=== PATIENT | female | born 1950 | race Asian ===

== ENCOUNTER 2018-06-01 16:50 | Inpatient (IN) | payer MEDICARE, MEDICAID ==
[2018-06-01 17:30] LABS: % BASOPHILS 1.4 % (0.0-2.0); % EOSINOPHILS 0.6 % (0.0-5.0); % LYMPHOCYTES 16.7 % (20.0-50.0); % MONOCYTES 0.4 % (2.0-10.0); % NEUTROPHILS 80.9 % (40.0-80.0); BASOPHILE ABSOLUTE 0.1 Th/cumm (0-0.2); HEMATOCRIT 33.1 % (41.0-60); HEMOGLOBIN 11.3 gm/dL (12-16); LYMPHOCYTE ABSOLUTE 1.4 Th/cmm (1.5-3.0); MEAN CELL VOLUME 89.6 fl (81-100); MEAN CORPUSCULAR HEMOGLOBIN 30.7 pg (27.0-31.0); MEAN CORPUSCULAR HGB CONC 34.2 pg (28.0-36.0); MEAN PLATELET VOLUME 7.8 fl; NEUTROPHILE ABSOLUTE 6.7 Th/cmm (1.8-8.0); PLATELET COUNT 267 Th/cmm (150-400); WHITE BLOOD COUNT 8.2 Th/cmm (4.8-10.8)
[2018-06-01 17:50] LABS: ALB/GLOB RATIO 1.2 (1.0-1.8); ALKALINE PHOSPHATASE 42 U/L (34-104); BILIRUBIN,TOTAL 0.7 mg/dL (0.3-1.0); BUN - UREA NITROGEN 35 mg/dL (7-25); CALCIUM SERUM 11.3 mg/dL (8.6-10.3); CHLORIDE 86 mEq/L (98-107); CREATININE - SERUM 0.9 mg/dL (0.6-1.2); GFR AFRICAN-AMERICAN > 60.0 ml/min (>90); GFR NON AFRICAN-AMERICAN > 60.0 ml/min; GLUCOSE 124 mg/dL (70-105); MAGNESIUM 1.3 mg/dL (1.9-2.7); PHOSPHOROUS 1.7 mg/dL (2.5-5.0); SGOT 34 U/L (13-39); SGPT/ALT 25 U/L (7-52); SODIUM SERUM 141 mEq/L (136-145); TOTAL PROTEIN,SERUM 3.7 gm/dL (6.0-8.3)
--- NOTE | 2018-06-01 17:54 | ED Physician Chart ---
ED Chief Complaint/HPI - Patient Information Date Seen:: 06/01/18 Time Seen:: 18:00 Chief Complaint:: low potassium , wants a new SNF History of Present Illness:: low potassium, wants a new SNF She called 911 to go to the hospital. Potassium of 2.6 on labs from today. Allergies:: Allergies Allergy/AdvReac Type Severity Reaction Status Date / Time cephalexin [From Keflex] Allergy Verified 06/01/18 17:10 ciprofloxacin Allergy Verified 06/01/18 17:10 Historian:: Patient, Medical Records Review:: Nurse's Note Reviewed, Transfer documents Reviewed ED Review of Systems - Review of Systems General/Constitutional: No fever, No chills, No weight loss, Weakness, No diaphoresis, No edema, No loss of appetite Skin: No skin lesions, No rash, No bruising Head: No headache, No light-headedness Eyes: No loss of vision, No pain, No diplopia ENT: No earache, No nasal drainage, No sore throat, No tinnitus Neck: No neck pain, No swelling, No thyromegaly, No stiffness, No mass noted Cardio Vascular: No chest pain, No palpitations, No PND, No orthopnea, edema Pulmonary: SOB, No cough, No sputum, No wheezing GI: No nausea, No vomiting, No diarrhea, No pain, No melena, No hematochezia, No constipation, No hematemesis G/U: No dysuria, No frequency, No hematuria Musculoskeletal: No bone or joint pain, No back pain, No muscle pain Endocrine: No polyuria, No polydipsia Psychiatric: Prior psych history, Depression, No anxiety, No suicidal ideation, No homicidal ideation, No auditory hallucination, No visual hallucination Hematopoietic: No bruising, No lymphadenopathy Allergic/Immuno: No urticaria, No angioedema Neurological: No syncope, No focal symptoms, No weakness, No paresthesia, No headache, No seizure, No dizziness, No confusion, No vertigo ED Past Medical History - Past Medical History Obtainable: No Past Medical History: HTN, DM, Dyslipidemia, PUD/GERD, Other (EDEMA) Psychiatricy History: Depression Family Medical History - Family Member Mother History Unknown: Yes ED Physical Exam - Physical Examination General/Constitutional: Awake, Well-developed, well-nourished, Alert, No distress, GCS 15, Non-toxic appearing, Ambulatory Head: Atraumatic Eyes: Lids, conjuctiva normal, PERRL, EOMI ENMT: External ears, nose nl Neck: Nontender, No nuchal rigidity, No stridor Respiratory: Nl effort/Exclusion Other Respiratory comments:: crackles at bases. no respiratory distress on oxygen. Cardio Vascular: RRR, No murmur, gallop, rubs, NL S1 S2 Extremities: Full ROM, normal strength in all extremities Other Extremities comments:: 3+ pitting edema. Neuro/Psych: Alert/oriented ED Labs/Radiology/EKG Results - Lab Results Results: Laboratory Tests 06/01/18 17:25 WBC 8.2 RBC 3.70 L Hgb 11.3 L Hct 33.1 L MCV 89.6 MCH 30.7 MCHC Differential 34.2 RDW 12.0 Plt Count 267 MPV 7.8 Neutrophils % 80.9 H Lymphocytes % 16.7 L Monocytes % 0.4 L Eosinophils % 0.6 Basophils % 1.4 ED Assessment - Assessment General Assessment: EKG from 19:08:36 p.m. reveals normal sinus rhythm, flipped t wave in V1 to V3. sign out given to Dr. Corona at 7:18 p.m. CXR: slight pulmonary edema. [address] Carmichael on cell phone. no answer. messages left. [address] Poe' service. no answer. message left. ED Septic Shock - . Is Septic Shock (SBP<90, OR Lactate>4 mmol\L) present?: No ED Reassessment (Disposition) - Diagnosis Diagnosis:: Hypokalemia Pulmonary edema Hypoxia, oxygen dependent. Low magnesium Low phosphorous. Urinary tract infection Anemia BLE edema.
[2018-06-01 17:59] LABS: URINE SOURCE CLEAN C
[2018-06-01 18:12] LABS: URINE BILIRUBIN NEGATIVE (NEGATIVE); URINE BLOOD SMALL (NEGATIVE); URINE GLUCOSE (UA) NEGATIVE (NEGATIVE); URINE KETONE NEGATIVE (NEGATIVE); URINE LEUKOCYTE ESTERASE TRACE (NEGATIVE); URINE MICROSCOPIC INDICATED? YES; URINE NITRATE NEGATIVE (NEGATIVE); URINE PROTEIN >=300 mg/dL (NEGATIVE); URINE UROBILINOGEN 0.2 E.U./dL (0.2 - 1.0)
[2018-06-01 18:18] LABS: ANION GAP 6.3 (7.0-16.0); CARBON DIOXIDE 51.1 mEq/L (21.0-31.0); POTASSIUM SERUM 2.4 mEq/L (3.5-5.1)
[2018-06-01] MEDS ORDERED: Potassium Chloride 20 mEq ER Tab PO ONE ×2 (18:18→18:58)
[2018-06-01 18:44] LABS: URINE CLARITY HAZY (CLEAR); URINE COLOR YELLOW
[2018-06-01 18:45] LABS: URINE EPITHELIAL CELLS FEW /lpf (FEW); URINE RBC NONE SEEN /hpf (0-5); URINE WBC 0-2 /hpf (0-5)
[2018-06-01 18:46] LABS: URINE BACTERIA MODERATE /hpf (NONE SEEN)
[2018-06-01] MEDS ORDERED: Potassium Chloride Elixir 20 mEq /15 mL UDC PO ONE (19:01)
[2018-06-01] MEDS ORDERED: Potassium Chloride Elixir 20 mEq /15 mL UDC ONE (19:03)
[2018-06-01 19:07] LABS: AMPHETAMINE URINE NEGATIVE (NEGATIVE); BARBITURATES URINE NEGATIVE (NEGATIVE); BENZODIAZEPINES QUAL URINE NEGATIVE (NEGATIVE); CANNABINOID THC NEGATIVE (NEGATIVE); COCAINE METABOLITE QUAL URINE NEGATIVE (NEGATIVE); METHADONE URINE NEGATIVE (NEGATIVE); METHAMPHETAMINES QUAL URINE NEGATIVE (NEGATIVE); OPIATES (MORPHINE) QUAL. URINE NEGATIVE (NEGATIVE); PHENCYCLIDINE (PCP) URINE NEGATIVE (NEGATIVE); TRICYCLICS (TCA) QUAL. URINE NEGATIVE (NEGATIVE)
[2018-06-01] MEDS ORDERED: Sodium Phos / Potassium Phos 1.25 GM PACK PO ONE (19:14)
[2018-06-01] MEDS ORDERED: Sulfamethoxazole/TMP 800/160mg Tab PO ONE (19:26)
[2018-06-01] MEDS ORDERED: D5-0.45NS w/20 mEq KCL 1,000 ML IV ONE ×2 (19:27→20:32)
[2018-06-01] MEDS ORDERED: Magnesium Sulfate 1 gm/2 mL 2mL Vial IV ONE ×2 (19:37→23:16)
[2018-06-01] MEDS ORDERED: Sulfamethoxazole/TMP 800/160mg Tab ONE (19:39)
[2018-06-01] MEDS ORDERED: Sodium Phos / Potassium Phos 1.25 GM PACK ONE (19:40)
[2018-06-01] MEDS ORDERED: Magnesium Sulfate 2 GM in Sodium Chloride 0.9% 500 ML IV ONE (21:57)
[2018-06-01] MEDS ORDERED: INSULIN HUMAN REGULAR 100 UNITS/ML UNIT SUBQ SCH ×2 (22:15)
[2018-06-02] MEDS ORDERED: cloNIDine 0.1 mg/24 hr Tdm TD SCH (00:30)
[2018-06-02 01:20] VITALS: BP 203/99
[2018-06-02] MEDS ORDERED: KCL 20mEq/100mL Premix 40 MEQ/200 ML PIGGYBACK IV ONE (03:34)
[2018-06-02] MEDS: Morphine Sulfate 4 mg/mL 1mL Syr IVP PRN ×2 (03:56→12:37)
[2018-06-02] MEDS ORDERED: Potassium Chloride 20 mEq ER Tab PO ONE ×2 (05:31→15:10)
[2018-06-02] MEDS ORDERED: INSULIN HUMAN REGULAR 100 UNITS/ML UNIT SUBQ SCH (07:30)
[2018-06-02 07:52] LABS: HEMOGLOBIN 11.5 gm/dL (12-16)
[2018-06-02 07:57] LABS: HEMATOCRIT 33.5 % (41.0-60); MEAN CORPUSCULAR HEMOGLOBIN 30.7 pg (27.0-31.0); MEAN CORPUSCULAR HGB CONC 34.4 pg (28.0-36.0); MEAN PLATELET VOLUME 7.9 fl; PLATELET COUNT 227 Th/cmm (150-400); RED BLOOD COUNT 3.76 Mil/cmm (3.80-5.20); RED CELL DISTRIBUTION WIDTH 12.4 % (11.5-20.0); WHITE BLOOD COUNT 8.6 Th/cmm (4.8-10.8)
[2018-06-02 08:23] LABS: ALB/GLOB RATIO 1.3 (1.0-1.8); ALKALINE PHOSPHATASE 42 U/L (34-104); BILIRUBIN,TOTAL 0.6 mg/dL (0.3-1.0); BUN - UREA NITROGEN 32 mg/dL (7-25); CALCIUM SERUM 10.7 mg/dL (8.6-10.3); CHLORIDE 93 mEq/L (98-107); GLUCOSE 114 mg/dL (70-105); POTASSIUM SERUM 3.3 mEq/L (3.5-5.1); SGOT 32 U/L (13-39); SGPT/ALT 23 U/L (7-52); SODIUM SERUM 144 mEq/L (136-145); TOTAL PROTEIN,SERUM 3.6 gm/dL (6.0-8.3)
[2018-06-02 08:39] LABS: ANION GAP 3.8 (7.0-16.0); CARBON DIOXIDE 50.5 mEq/L (21.0-31.0)
[2018-06-02] MEDS ORDERED: VTE Chemical Prophylaxis Screen/Admission MC PRN (09:11)
[2018-06-02] MEDS ORDERED: Influenza Vaccine (65 yr & older) 0.5 ml Syr IM ONE (09:15)
--- NOTE | 2018-06-02 09:18 | Diagnostic Imaging Report ---
Chest x-ray single view History: Hypoxia Comparison: None The heart size is normal. No focal pulmonary parenchymal processes. No hilar or mediastinal abnormalities. Impression: No acute abnormalities
[2018-06-02 09:31] LABS: BAND NEUTROPHILE 1 % (0-10); BASOPHIL 0 % (0-3); EOSINOPHIL 0 % (0-5); LYMPHOCYTE 8 % (20-50); MONOCYTE 4 % (2-10); NEUTROPHILS 87 % (40-80)
[2018-06-02] MEDS ORDERED: Acetaminophen 500 MG TAB PO PRN (12:04)
[2018-06-02] MEDS ORDERED: Acetaminophen 500 MG TAB ONE (12:07)
[2018-06-02] MEDS: 0.9% NS w/20 mEq KCL 1,000 ML IV SCH ×2 (12:13)
[2018-06-02] MEDS: INSULIN ASPART, RECOMBINANT 100 UNITS/ML SUBQ SCH ×3 (12:13→21:16)
[2018-06-02 13:13] LABS: GFR AFRICAN-AMERICAN > 60.0 ml/min (>90); GFR NON AFRICAN-AMERICAN 59.1 ml/min
[2018-06-02] MEDS ORDERED: Mag Sulfate 2gm/50mL Premix 2 GM/50 ML BAG IV ONE (15:05)
[2018-06-02 15:31] LABS: ALLEN TEST pos
[2018-06-02 15:33] LABS: pH 7.53 (7.35-7.45)
[2018-06-02] MEDS: D5-0.45NS 1,000 ML IV SCH (17:25)
[2018-06-02] MEDS: predniSONE 5 mg/5 mL UDC PO SCH (17:25)
[2018-06-02] MEDS ORDERED: Dextrose 50% 50 mL Abboject IVP PRN (17:37)
[2018-06-02] MEDS ORDERED: GLUCAGON HCl 1 MG KIT IM PRN (17:37)
[2018-06-02] MEDS ORDERED: Dextrose 50% 50 mL Abboject IVP ONE (17:39)
--- NOTE | 2018-06-02 19:29 | History & Physical ---
ADMIT DATE: 06/02/2018 PATIENT'S ID: A 67-year-old female. CHIEF COMPLAINT: "I feel weak." HISTORY SOURCE: Talking to patient's family, reviewing the chart and Emergency Room MD. HISTORY OF PRESENT ILLNESS: A 67-year-old [place] female who resides at local [facility], brought in to the Emergency Room by paramedics after the patient called 911 because the patient was not feeling well and the patient did have a blood test on 06/01/2018, which revealed potassium of 2.6 and the patient was arrived in the Emergency Room, the patient was worked up and noted to have a potassium of 2.3, magnesium 1.3, elevated CO2 of 51.5. The patient was advised to be admitted. The patient was recently discharged from the local hospital after the patient was noted to have generalized swelling of her body and she was recently placed on 2 diuretics. According to patient's family, they were not checking her lab, though I did find lab on 06/01. The patient is currently sleepy and lethargic. The patient had adequate potassium replacement and her potassium today is 3.3. The patient was admitted by me overnight. PAST MEDICAL HISTORY: Remarkable for: 1. Diabetes. 2. Hypertension. 3. Hyperlipidemia. 4. Depression. 5. Possible nephrotic syndrome. 6. Anasarca. 7. Degenerative joint disease. 8. Depression. MEDICATIONS: At the time of transfer has been reviewed and reconciled. ALLERGIES: The patient is allergic to KEFLEX and CIPRO. SOCIAL HISTORY: She resides in a [facility]. No history of smoking cigarette, alcohol, or drug use. FAMILY MEDICAL HISTORY: Remarkable for diabetes and hypertension. PHYSICAL EXAMINATION: GENERAL: The patient is sleepy and lethargic, refused to provide meaningful history. VITAL SIGNS: Temperature 97.3, pulse 60, respiratory rate 18, blood pressure 184/80. HEENT: Normocephalic, atraumatic. Extraocular muscles intact. Tongue more pink and coated. Poor dentition noted. NECK: Supple, no JVD. No hepatojugular reflex. No lymphadenopathy, thyromegaly, or carotid bruit. HEART: Both heart sounds are regular. CHEST AND LUNGS: Equal in expansion with no expiratory wheezing. ABDOMEN: Soft, no guarding, no rigidity. Liver and spleen not palpable. No palpable mass. EXTREMITIES: +2 pedal edema noted. No calf tenderness. NEUROLOGIC: Alert, awake, follows simple command, moving upper and lower extremity. AVAILABLE DIAGNOSTIC DATA: The patient's white count 8.2, hemoglobin 11.3, platelet count of 267. Potassium 2.4, CO2 51.5, anion gap of 6.3, BUN and creatinine 30 and 0.9, sodium 141, glucose 124, calcium 11.3, phosphorus 1.7, magnesium 1.3. BNP is . Albumin of 2.0. Urinalysis remarkable for plus more than 300 protein, small blood, trace leukocyte esterase, moderate bacteria. Urine drug screen was negative. Chest x-ray, no infiltrate, no congestion. CLINICAL IMPRESSIONS: 1. Severe electrolyte imbalance most likely secondary to diuretic use including metolazone and Lasix. 2. 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 3. Diabetes mellitus. 4. Hypertension. 5. Hyperlipidemia. 6. Volume contraction metabolic alkalosis. 7. Declining self-care and mobility. PLAN: Replace potassium and magnesium, aggressive IV hydration, hold diuretics, appropriate home medicine reconciliation, provide CASSI inhibitor for pyelonephritis syndrome along with beta-spencer. Calcium channel spencer will increase the patient's leg edema. The patient will have diabetic diet. Appropriate home medicine reconciliation. ABG will be checked in order to assess acid-base imbalance. The patient will have further recommendations based on other lab data are available. I will also have Nephrology evaluation from Dr. Low group and will continue to follow the recommendations. Care plan has been reviewed and discussed with the patient and the patient's family as well as assigned nurse. JOB# [id number]
[2018-06-02] MEDS: Insulin Detemir 100 units/mL 10mL Vial SUBQ SCH (21:16)
--- NOTE | 2018-06-02 23:54 | Consultation ---
Consult Note - Consult Note Service Date: 06/03/18 Consult Note: PHYSICIAN Consultation Note: Date of Admission: 06/01/18 Purpose of Consultation: Chief Complaint: History of Present Illness: Patient DOMITILA KOHLI was admitted to location Intensive Care Unit with SERIOUS ELECTROLYTE IMBALANCE. Ms. 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 Recently she was admitted to [facility] and underwent diuresis there with IV lasix. On examination, she denies complaints with the exception of flank edema. ROS: denies fevers, chills, nausea, vomiting, chest pain, shortness of breath, abdominal pain, + leg and flank edema Past Medical History: Allergies Allergy/AdvReac Type Severity Reaction Status Date / Time cephalexin [From Keflex] Allergy Verified 06/01/18 17:10 ciprofloxacin Allergy Verified 06/01/18 17:10 Vital Signs Temp 97.4 F 06/02/18 23:00 Pulse 58 06/02/18 23:00 Resp 12 06/02/18 23:00 BP 164/89 06/02/18 23:00 Pulse Ox 96 06/02/18 23:00 Intake & Output 06/02/18 06/02/18 06/03/18 06:59 18:59 06:59 Intake Total 547.5 788.75 Output Total 500 700 Balance 47.5 88.75 Weight (lbs) 68.311 kg 68.492 kg Intake: Intake, IV Amount 487.5 428.75 0.9% NS w/20 mEq KCL 1, 487.5 428.75 000 ml @ 75 mls/hr IV . [id number] [facility] Rx#:[id number] Oral 60 360 Output: Urine 500 700 Other: # Voids 2 3 # Bowel Movements 0 0 Weight Source Bedscale Bedscale Laboratory Results - last 24 hr 06/02/18 06/02/18 06/02/18 07:30 07:36 07:40 WBC 8.6 RBC 3.76 L Hgb 11.5 L Hct 33.5 L MCV 89.0 MCH 30.7 MCHC Differential 34.4 RDW 12.4 Plt Count 227 MPV 7.9 Add Manual Diff YES Band Neutrophils % 1 Neutrophils (Manual) 87 H Lymphocytes 8 L Monocytes 4 Eosinophils 0 Basophils 0 Specimen Source Sample Site pH pCO2 pO2 HCO3 Base Excess O2 Saturation Eren Test Vent Rate Inspired O2 Tidal Volume PEEP Pressure (ins/psv/peep) Critical Value Sodium Potassium Chloride Carbon Dioxide Anion Gap BUN Creatinine Est GFR ( Amer) Est GFR (Non-Af Amer) BUN/Creatinine Ratio Glucose POC Glucose 232 H Calcium Magnesium 1.8 L Total Bilirubin AST ALT Alkaline Phosphatase Troponin I Total Protein Albumin Globulin Albumin/Globulin Ratio 06/02/18 06/02/18 06/02/18 07:40 11:52 15:06 WBC RBC Hgb Hct MCV MCH MCHC Differential RDW Plt Count MPV Add Manual Diff Band Neutrophils % Neutrophils (Manual) Lymphocytes Monocytes Eosinophils Basophils Specimen Source art Sample Site lr pH 7.53 H pCO2 65.0 H* pO2 70.0 L HCO3 45.1 H Base Excess 25.9 H O2 Saturation 95.0 Eren Test pos Vent Rate na Inspired O2 24 Tidal Volume na PEEP na Pressure (ins/psv/peep) na Critical Value rninofranco Sodium 144 Potassium 3.3 L Chloride 93 L Carbon Dioxide 50.5 H Anion Gap 3.8 L BUN 32 H Creatinine 1.0 Est GFR ( Amer) > 60.0 Est GFR (Non-Af Amer) 59.1 BUN/Creatinine Ratio Glucose 114 H POC Glucose 168 H Calcium 10.7 H Magnesium Total Bilirubin 0.6 AST 32 ALT 23 Alkaline Phosphatase 42 Troponin I Total Protein 3.6 L Albumin 2.0 L Globulin 1.6 Albumin/Globulin Ratio 1.3 06/02/18 06/02/18 06/02/18 15:21 17:35 18:02 WBC RBC Hgb Hct MCV MCH MCHC Differential RDW Plt Count MPV Add Manual Diff Band Neutrophils % Neutrophils (Manual) Lymphocytes Monocytes Eosinophils Basophils Specimen Source Sample Site pH pCO2 pO2 HCO3 Base Excess O2 Saturation Eren Test Vent Rate Inspired O2 Tidal Volume PEEP Pressure (ins/psv/peep) Critical Value Sodium Potassium Chloride Carbon Dioxide Anion Gap BUN Creatinine Est GFR ( Amer) Est GFR (Non-Af Amer) BUN/Creatinine Ratio Glucose POC Glucose 56 L 124 H Calcium Magnesium Total Bilirubin AST ALT Alkaline Phosphatase Troponin I 0.04 Total Protein Albumin Globulin Albumin/Globulin Ratio 06/02/18 21:09 WBC RBC Hgb Hct MCV MCH MCHC Differential RDW Plt Count MPV Add Manual Diff Band Neutrophils % Neutrophils (Manual) Lymphocytes Monocytes Eosinophils Basophils Specimen Source Sample Site pH pCO2 pO2 HCO3 Base Excess O2 Saturation Eren Test Vent Rate Inspired O2 Tidal Volume PEEP Pressure (ins/psv/peep) Critical Value Sodium Potassium Chloride Carbon Dioxide Anion Gap BUN Creatinine Est GFR ( Amer) Est GFR (Non-Af Amer) BUN/Creatinine Ratio Glucose POC Glucose 158 H Calcium Magnesium Total Bilirubin AST ALT Alkaline Phosphatase Troponin I Total Protein Albumin Globulin Albumin/Globulin Ratio Home Medication Medication Instructions Recorded Type Atorvastatin Calcium [Lipitor] 40 mg PO HS 06/01/18 History Bisacodyl [Dulcolax 10 Mg Supp] 10 mg RC Q24H PRN 06/01/18 History Calcitriol [Rocaltrol] 0.5 mcg PO DAILY 06/01/18 History Calcium Acetate [Phoslo] 1,334 mg PO TID 06/01/18 History Calcium Carbonate 500 mg PO BID 06/01/18 History Carvedilol 12.5 mg PO BID 06/01/18 History Docusate Sodium 100 mg PO BID 06/01/18 History Fluoxetine HCl [Prozac] 40 mg PO DAILY 06/01/18 History Furosemide [Lasix] 40 mg PO Q12H 06/01/18 History Glimepiride [Amaryl] 1 mg PO BID 06/01/18 History Insulin Lispro [Humalog] 0 unit SUBQ ACHS 06/01/18 History Metolazone 5 mg PO DAILY 06/01/18 History Multivitamin w/ Minerals 1 tab PO DAILY 06/01/18 History [Theragran M] Pantoprazole Sodium 40 mg PO DAILY 06/01/18 History Potassium Chloride ER [Klor-Con] 40 meq PO Q12H 06/01/18 History Prednisone [Deltasone] 60 mg PO DAILY 06/01/18 History Sennosides [Senna] 17.2 mg PO DAILY 06/01/18 History Current Medications Generic Name Dose Route Start Last Admin Trade Name Freq PRN Reason Stop Dose Admin Acetaminophen 500 mg 06/02/18 12:04 Tylenol Extra Strength PO 08/01/18 12:03 Q6H PRN Pain (Mild) Carvedilol 12.5 mg 06/02/18 18:00 06/02/18 17:26 Coreg PO 08/01/18 17:59 12.5 mg BIDWM ASHLEY Administration Clonidine HCl 1 patch 06/02/18 00:30 06/02/18 03:55 [id number] TD 08/01/18 00:29 Not Given SA ASHLEY Dextrose 50 ml 06/02/18 17:37 D50w IVP 08/01/18 17:36 PRN PRN Blood Glucose less than 70 Dextrose 18.75 gm 06/02/18 17:37 Glutose 40% PO 08/01/18 17:36 PRN PRN Blood Glucose less than 70 Enalapril Maleate 20 mg 06/02/18 17:00 06/02/18 17:26 Vasotec PO 08/01/18 16:59 20 mg BID ASHLEY Administration Glucagon 1 mg 06/02/18 17:37 Glucagen IM 08/01/18 17:36 PRN PRN Blood Glucose less than 70 Heparin Sodium (Porcine) 5,000 units 06/02/18 09:00 06/02/18 21:17 Heparin SUBQ 08/01/18 08:59 5,000 units Q12HR ASHLEY Administration Dextrose/Sodium Chloride 1,000 mls @ 100 mls/hr 06/02/18 15:15 06/02/18 17:25 D5-0.45ns IV 08/01/18 15:14 100 mls/hr .Q10H ASHLEY Administration Insulin Aspart 0 units 06/02/18 09:07 06/02/18 21:16 Novolog SUBQ 08/01/18 07:29 2 units ACHS ASHLEY Administration Protocol Insulin Detemir 12 units 06/02/18 21:00 06/02/18 21:16 Levemir Insulin SUBQ 08/01/18 20:59 12 units HS ASHLEY Administration Protocol Miscellaneous 1 ea 06/02/18 09:11 Vte Chemical Prophylaxis Screen/ Admission 08/01/18 09:10 PRN PRN PROTOCOL Morphine Sulfate 2 mg 06/02/18 00:22 06/02/18 12:37 Morphine IVP 08/01/18 00:21 2 mg Q6HR PRN Administration Pain (Severe) Prednisone 10 mg 06/02/18 17:00 06/02/18 17:25 Prednisone PO 08/01/18 16:59 10 mg BID ASHLEY Administration Sitagliptin Phosphate 100 mg 06/03/18 09:00 Januvia PO 08/02/18 08:59 DAILY ASHLEY Review of Systems: A 12 point ROS was reviewed with the pertinent positive and negatives noted in the HPI. Social History Smoking Status Unknown if ever smoked Drug Use No Alcohol Use No Family Medical History Family Medical History Start: 06/01/18 22: 17 Freq: ONCE Status: Active Protocol: Document 06/01/18 22:17 [email or web address] (Rec: 06/02/18 01:16 [email or web address] VILLA- [id number]) Family Medical History Mother History Unknown Yes Physical Exam: General: WDWN woman, NAD, alert and oriented Cardio: regular rate, nl rhythm, no m/r/g Respiratory: clear bilaterally Abdominal: active bowel sounds, + flank edema Extremities: 1+ edema Assessment: 1. FSGS, biopsy proven w/ recent relapse: continue steroids for now, obtain 24h urine protein collection for quantification. She may need pulse steroids for 5 days if she has not remitted 2. Nephrotic syndrome: see above, continue lasix/prednisone 3. HTN: continue BP meds at this time, CASSI-I included for antiproteinuric effect Plan: See above. D/w [employer] SPECIALIST Signed, Mitesh Hernandez 06/03/18 0030
[2018-06-03] MEDS ORDERED: Potassium Phosphate 20 MMOLE in Sodium Chloride 0.9% 250 ML IV ONE ×2 (02:00→14:00)
[2018-06-03] MEDS: D5-0.45NS 1,000 ML IV SCH ×3 (03:25→23:57)
[2018-06-03] MEDS: INSULIN ASPART, RECOMBINANT 100 UNITS/ML SUBQ SCH ×4 (06:55→21:06)
[2018-06-03 07:25] LABS: % BASOPHILS 0.5 % (0.0-2.0); % EOSINOPHILS 0.5 % (0.0-5.0); % LYMPHOCYTES 9.8 % (20.0-50.0); % MONOCYTES 5.1 % (2.0-10.0); % NEUTROPHILS 84.1 % (40.0-80.0); HEMATOCRIT 33.3 % (41.0-60); HEMOGLOBIN 11.5 gm/dL (12-16); LYMPHOCYTE ABSOLUTE 0.9 Th/cmm (1.5-3.0); MEAN CELL VOLUME 89.4 fl (81-100); MEAN CORPUSCULAR HEMOGLOBIN 30.9 pg (27.0-31.0); MEAN CORPUSCULAR HGB CONC 34.5 pg (28.0-36.0); MEAN PLATELET VOLUME 8.2 fl; MONOCYTE ABSOLUTE 0.5 Th/cmm (0.3-1.0); NEUTROPHILE ABSOLUTE 7.5 Th/cmm (1.8-8.0); PLATELET COUNT 228 Th/cmm (150-400); RED BLOOD COUNT 3.72 Mil/cmm (3.80-5.20); WHITE BLOOD COUNT 8.9 Th/cmm (4.8-10.8)
[2018-06-03 08:13] LABS: ALBUMIN 1.8 gm/dL (3.7-5.3); ALKALINE PHOSPHATASE 40 U/L (34-104); ANION GAP 5.4 (7.0-16.0); BILIRUBIN,TOTAL 0.4 mg/dL (0.3-1.0); BUN - UREA NITROGEN 30 mg/dL (7-25); CHLORIDE 97 mEq/L (98-107); GFR AFRICAN-AMERICAN > 60.0 ml/min (>90); GFR NON AFRICAN-AMERICAN 59.1 ml/min; GLUCOSE 108 mg/dL (70-105); MAGNESIUM 1.7 mg/dL (1.9-2.7); POTASSIUM SERUM 3.2 mEq/L (3.5-5.1); SGOT 28 U/L (13-39); SGPT/ALT 20 U/L (7-52); SODIUM SERUM 142 mEq/L (136-145); TOTAL PROTEIN,SERUM 3.6 gm/dL (6.0-8.3)
[2018-06-03 08:15] LABS: CARBON DIOXIDE 42.8 mEq/L (21.0-31.0)
[2018-06-03] MEDS: predniSONE 5 mg/5 mL UDC PO SCH ×2 (08:25→16:50)
[2018-06-03] MEDS ORDERED: Potassium Chloride 20 mEq ER Tab PO ONE (11:38)
[2018-06-03] MEDS ORDERED: Mag Sulfate 2gm/50mL Premix 2 GM/50 ML BAG IV ONE (12:11)
[2018-06-03] MEDS: Docusate Sodium/Senna Tab PO SCH (16:51)
--- NOTE | 2018-06-03 19:03 | Progress Notes ---
DATE: 06/03/2018 IDENTIFICATION: A 67-year-old female. SUBJECTIVE: The patient seen and examined. The patient is lying in the bed. The patient is more alert and awake. According to the patient, she feels better. Nephrology input is greatly appreciated. The patient did have a renal biopsy, which revealed focal segmental glomerulosclerosis. The patient currently denies any chest pain, shortness of breath, palpitation, dizziness, nausea. PHYSICAL EXAMINATION: VITAL SIGNS: Temperature 96.4, pulse is 64, respiratory rate 13, blood pressure is 118/62. HEENT: No facial asymmetry. NECK: Supple, no JVD. HEART: Regular. CHEST AND LUNGS: Equal in expansion, no expiratory wheezing. ABDOMEN: Soft. No guarding, no rigidity. Bowel sounds are present. No palpable mass. EXTREMITIES: +1 edema noted. AVAILABLE DIAGNOSTIC DATA: White count of 8.9, hemoglobin 11.5, platelet count 228, potassium 3.2, chloride 97, CO2 42.8, BUN and creatinine is 30 and 1.0, albumin of 1.8, AST and ALT are normal. Phosphorus 2, magnesium 1.7. CLINICAL IMPRESSION: 1. Severe electrolyte imbalance, improving. 2. 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 3. Volume contraction metabolic alkalosis. 4. Diabetes mellitus. 5. Hypertension. 6. Hyperlipidemia. 7. Debility. PLAN: 1. Replace potassium, phosphorus, magnesium. 2. Continue prednisone for now. 3. Continue p.o. diet. 4. Diabetes management. 5. PT, OT. 6. Transfer to telemetry unit. 7. General nursing care. 8. Cardiac monitoring. 9. Follow lab. 10. Follow practice consultant recommendation. 11. Care plan reviewed and discussed with staff. JOB# [id number]
[2018-06-03] MEDS: Insulin Detemir 100 units/mL 10mL Vial SUBQ SCH (21:02)
[2018-06-04 05:25] LABS: % BASOPHILS 0.1 % (0.0-2.0); % EOSINOPHILS 0.5 % (0.0-5.0); % LYMPHOCYTES 8.8 % (20.0-50.0); % MONOCYTES 3.6 % (2.0-10.0); EOSINOPHILE ABSOLUTE 0.1 Th/cmm (0.1-0.4); HEMATOCRIT 30.3 % (41.0-60); HEMOGLOBIN 10.3 gm/dL (12-16); MEAN CELL VOLUME 90.3 fl (81-100); MEAN CORPUSCULAR HEMOGLOBIN 30.6 pg (27.0-31.0); MEAN CORPUSCULAR HGB CONC 33.9 pg (28.0-36.0); MEAN PLATELET VOLUME 8.4 fl; MONOCYTE ABSOLUTE 0.4 Th/cmm (0.3-1.0); NEUTROPHILE ABSOLUTE 10.3 Th/cmm (1.8-8.0); PLATELET COUNT 221 Th/cmm (150-400); RED BLOOD COUNT 3.35 Mil/cmm (3.80-5.20); RED CELL DISTRIBUTION WIDTH 12.4 % (11.5-20.0); WHITE BLOOD COUNT 11.8 Th/cmm (4.8-10.8)
[2018-06-04 06:11] LABS: ALB/GLOB RATIO 1.1 (1.0-1.8); ALBUMIN 1.8 gm/dL (3.7-5.3); ALKALINE PHOSPHATASE 39 U/L (34-104); ANION GAP 7.4 (7.0-16.0); BILIRUBIN,TOTAL 0.4 mg/dL (0.3-1.0); BUN - UREA NITROGEN 29 mg/dL (7-25); CALCIUM SERUM 8.8 mg/dL (8.6-10.3); CARBON DIOXIDE 38.1 mEq/L (21.0-31.0); CHLORIDE 95 mEq/L (98-107); CREATININE - SERUM 1.1 mg/dL (0.6-1.2); GFR AFRICAN-AMERICAN > 60.0 ml/min (>90); GLUCOSE 175 mg/dL (70-105); MAGNESIUM 1.9 mg/dL (1.9-2.7); PHOSPHOROUS 2.3 mg/dL (2.5-5.0); POTASSIUM SERUM 3.5 mEq/L (3.5-5.1); SGOT 24 U/L (13-39); SGPT/ALT 17 U/L (7-52); SODIUM SERUM 137 mEq/L (136-145); TOTAL PROTEIN,SERUM 3.5 gm/dL (6.0-8.3)
[2018-06-04] MEDS: INSULIN ASPART, RECOMBINANT 100 UNITS/ML SUBQ SCH ×4 (06:45→21:19)
[2018-06-04] MEDS: predniSONE 5 mg/5 mL UDC PO SCH ×2 (08:25→17:03)
[2018-06-04] MEDS: Docusate Sodium/Senna Tab PO SCH ×2 (08:28→17:04)
[2018-06-04] MEDS ORDERED: Fleet Enema 135 mL RC ONE (15:53)
[2018-06-04] MEDS: Potassium Chloride 20 mEq ER Tab PO SCH (17:03)
--- NOTE | 2018-06-04 17:28 | General Progress Note ---
Subjective - Review of Systems Service Date: 06/04/18 Events since last encounter: HYPERTENSIVE STILL VOLUME OVERLOADED NOTED TO ONLY BE ON PREDNISONE 10 BID NOTED TO BE ON IVF 100CC/HR Subjective: UNCOMFORTABLE Objective - Results Result Diagrams: 06/04/18 04:55 06/04/18 04:55 Recent Labs: Laboratory Last Values WBC 11.8 Th/cmm (4.8-10.8) H D 06/04/18 04:55 RBC 3.35 Mil/cmm (3.80-5.20) L 06/04/18 04:55 Hgb 10.3 gm/dL (12-16) L 06/04/18 04:55 Hct 30.3 % (41.0-60) L 06/04/18 04:55 MCV 90.3 fl (81-100) 06/04/18 04:55 MCH 30.6 pg (27.0-31.0) 06/04/18 04:55 MCHC Differential 33.9 pg (28.0-36.0) 06/04/18 04:55 RDW 12.4 % (11.5-20.0) 06/04/18 04:55 Plt Count 221 Th/cmm (150-400) 06/04/18 04:55 MPV 8.4 fl 06/04/18 04:55 Add Manual Diff YES 06/02/18 07:40 Neutrophils % 87.0 % (40.0-80.0) H 06/04/18 04:55 Band Neutrophils % 1 % (0-10) 06/02/18 07:40 Lymphocytes % 8.8 % (20.0-50.0) L 06/04/18 04:55 Monocytes % 3.6 % (2.0-10.0) 06/04/18 04:55 Eosinophils % 0.5 % (0.0-5.0) 06/04/18 04:55 Basophils % 0.1 % (0.0-2.0) 06/04/18 04:55 Neutrophils (Manual) 87 % (40-80) H 06/02/18 07:40 Lymphocytes 8 % (20-50) L 06/02/18 07:40 Monocytes 4 % (2-10) 06/02/18 07:40 Eosinophils 0 % (0-5) 06/02/18 07:40 Basophils 0 % (0-3) 06/02/18 07:40 Specimen Source art 06/02/18 15:06 Sample Site lr 06/02/18 15:06 pH 7.53 (7.35-7.45) H 06/02/18 15:06 pCO2 65.0 mmHg (35.0-45.0) H* 06/02/18 15:06 pO2 70.0 mmHg (80.0-100.0) L 06/02/18 15:06 HCO3 45.1 mEq/L (20.0-26.0) H 06/02/18 15:06 Base Excess 25.9 mEq/L (-3.0-3.0) H 06/02/18 15:06 O2 Saturation 95.0 % (92.0-100.0) 06/02/18 15:06 Eren Test pos 06/02/18 15:06 Vent Rate na 06/02/18 15:06 Inspired O2 24 06/02/18 15:06 Tidal Volume na 06/02/18 15:06 PEEP na 06/02/18 15:06 Pressure (ins/psv/peep) na 06/02/18 15:06 Critical Value rninofranco 06/02/18 15:06 Sodium 137 mEq/L (136-145) 06/04/18 04:55 Potassium 3.5 mEq/L (3.5-5.1) 06/04/18 04:55 Chloride 95 mEq/L (98-107) L 06/04/18 04:55 Carbon Dioxide 38.1 mEq/L (21.0-31.0) H 06/04/18 04:55 Anion Gap 7.4 (7.0-16.0) 06/04/18 04:55 BUN 29 mg/dL (7-25) H 06/04/18 04:55 Creatinine 1.1 mg/dL (0.6-1.2) 06/04/18 04:55 Est GFR ( Amer) > 60.0 ml/min (>90) 06/04/18 04:55 Est GFR (Non-Af Amer) 53.0 ml/min 06/04/18 04:55 BUN/Creatinine Ratio 26.4 06/04/18 04:55 Glucose 175 mg/dL (70-105) H 06/04/18 04:55 POC Glucose 176 MG/DL (70 - 105) H 06/04/18 16:44 Calcium 8.8 mg/dL (8.6-10.3) 06/04/18 04:55 Phosphorus 2.3 mg/dL (2.5-5.0) L 06/04/18 04:55 Magnesium 1.9 mg/dL (1.9-2.7) 06/04/18 04:55 Total Bilirubin 0.4 mg/dL (0.3-1.0) 06/04/18 04:55 AST 24 U/L (13-39) 06/04/18 04:55 ALT 17 U/L (7-52) 06/04/18 04:55 Alkaline Phosphatase 39 U/L (34-104) 06/04/18 04:55 Troponin I 0.03 ng/mL (0.01-0.05) 06/03/18 07:00 B-Natriuretic Peptide 111.0 pg/mL (5.0-100.0) H 06/01/18 17:45 Total Protein 3.5 gm/dL (6.0-8.3) L 06/04/18 04:55 Albumin 1.8 gm/dL (3.7-5.3) L 06/04/18 04:55 Globulin 1.7 gm/dL 06/04/18 04:55 Albumin/Globulin Ratio 1.1 (1.0-1.8) 06/04/18 04:55 Urine Source CLEAN C 06/01/18 17:49 Urine Color YELLOW 06/01/18 17:49 Urine Clarity HAZY (CLEAR) 06/01/18 17:49 Urine pH 8.0 (4.6 - 8.0) 06/01/18 17:49 Ur Specific [place] 1.025 (1.005-1.030) 06/01/18 17:49 Urine Protein >=300 mg/dL (NEGATIVE) 06/01/18 17:49 Urine Glucose (UA) NEGATIVE mg/dL (NEGATIVE) 06/01/18 17:49 Urine Ketones NEGATIVE mg/dL (NEGATIVE) 06/01/18 17:49 Urine Blood SMALL (NEGATIVE) H 06/01/18 17:49 Urine Nitrate NEGATIVE (NEGATIVE) 06/01/18 17:49 Urine Bilirubin NEGATIVE (NEGATIVE) 06/01/18 17:49 Urine Urobilinogen 0.2 E.U./dL (0.2 - 1.0) 06/01/18 17:49 Ur Leukocyte Esterase TRACE (NEGATIVE) H 06/01/18 17:49 Urine RBC NONE SEEN /hpf (0-5) 06/01/18 17:49 Urine WBC 0-2 /hpf (0-5) 06/01/18 17:49 Ur Epithelial Cells FEW /lpf (FEW) 06/01/18 17:49 Urine Bacteria MODERATE /hpf (NONE SEEN) H 06/01/18 17:49 U Random Total Protein 680.0 mg/dL 06/04/18 05:00 Urine Collection Time 24 hours 06/04/18 05:00 Urine Total Volume 800 ml 06/04/18 05:00 Urine Creatinine 69.0 mg/dl (28.0-217.0) 06/02/18 23:30 U Tot Protein 24h, Calc 5440.0 mg/24 hr (0-165) H 06/04/18 05:00 Urine Opiates Screen NEGATIVE (NEGATIVE) 06/01/18 17:49 Urine Methadone Screen NEGATIVE (NEGATIVE) 06/01/18 17:49 Ur Barbiturates Screen NEGATIVE (NEGATIVE) 06/01/18 17:49 Ur Tricyclics Screen NEGATIVE (NEGATIVE) 06/01/18 17:49 Ur Phencyclidine Scrn NEGATIVE (NEGATIVE) 06/01/18 17:49 Amphetamines Screen NEGATIVE (NEGATIVE) 06/01/18 17:49 U Methamphetamines Scrn NEGATIVE (NEGATIVE) 06/01/18 17:49 U Benzodiazepines Scrn NEGATIVE (NEGATIVE) 06/01/18 17:49 U Cocaine Metab Screen NEGATIVE (NEGATIVE) 06/01/18 17:49 U Cannabinoids Screen NEGATIVE (NEGATIVE) 06/01/18 17:49 - Physical Exam Vitals and I&O: Vital Signs Temp 97.2 F 06/04/18 12:00 Pulse 71 06/04/18 17:03 Resp 12 06/04/18 12:00 BP 159/76 06/04/18 17:03 Pulse Ox 97 06/04/18 12:00 Intake & Output 06/03/18 06/04/18 06/04/18 18:59 06:59 18:59 Intake Total 1620.029 550 Output Total 250 300 Balance 1370.029 250 Weight (lbs) 68.674 kg 69.626 kg Intake: Intake, IV Amount 1270.029 550 D5-0.45NS 1,000 ml @ 100 1106.667 550 mls/hr IV .Q10H [facility] Rx#: [id number] Potassium Phosphate 20 113.362 mmole In Sodium Chloride 0.9% 250 ml @ 42.778 mls/ hr IV ONCE ONE Rx#: [id number] Oral 350 Output: Urine 250 300 Other: # Voids 5 3 # Bowel Movements 0 Weight Source Bedscale Bedscale Active Medications: Current Medications Acetaminophen (Tylenol Extra Strength) 500 mg PO Q6H PRN PRN Reason: Pain (Mild) Stop: 08/01/18 12:03 Carvedilol (Coreg) 12.5 mg PO BIDWM [facility] Stop: 08/01/18 17:59 Last Admin: 06/04/18 17:03 Dose: 12.5 mg Clonidine HCl (Bifhwxbd-Dgz-0) 1 patch TD SA [facility] Stop: 08/01/18 00:29 Last Admin: 06/02/18 03:55 Dose: Not Given Dextrose (D50w) 50 ml IVP PRN PRN PRN Reason: Blood Glucose less than 70 Stop: 08/01/18 17:36 Dextrose (Glutose 40%) 18.75 gm PO PRN PRN PRN Reason: Blood Glucose less than 70 Stop: 08/01/18 17:36 Enalapril Maleate (Vasotec) 20 mg PO BID [facility] Stop: 08/01/18 16:59 Last Admin: 06/04/18 17:02 Dose: 20 mg Furosemide (Lasix) 80 mg IVP BID [facility] Stop: 08/04/18 08:59 Glucagon (Glucagen) 1 mg IM PRN PRN PRN Reason: Blood Glucose less than 70 Stop: 08/01/18 17:36 Heparin Sodium (Porcine) (Heparin) 5,000 units SUBQ Q12HR [facility] Stop: 08/01/18 08:59 Last Admin: 06/04/18 08:28 Dose: 5,000 units Dextrose/Sodium Chloride (D5-0.45ns) 1,000 mls @ 0 mls/hr IV .Q0M [facility] Stop: 08/03/18 17:29 Insulin Aspart (Novolog) 0 units SUBQ ACHS [facility]; Protocol Stop: 08/01/18 07:29 Last Admin: 06/04/18 17:12 Dose: 2 units Insulin Detemir (Levemir Insulin) 12 units SUBQ HS [facility]; Protocol Stop: 08/01/18 20:59 Last Admin: 06/03/18 21:02 Dose: 12 units Miscellaneous (Vte Chemical Prophylaxis Screen/ Admission) 1 ea [facility] PRN PRN PRN Reason: PROTOCOL Stop: 08/01/18 09:10 Morphine Sulfate (Morphine) 2 mg IVP Q6HR PRN PRN Reason: Pain (Severe) Stop: 08/01/18 00:21 Last Admin: 06/02/18 12:37 Dose: 2 mg Potassium Chloride (Klor-Con) 20 meq PO BID [facility] Stop: 08/03/18 16:59 Last Admin: 06/04/18 17:03 Dose: 20 meq Prednisone (Prednisone) 10 mg PO BID [facility] Stop: 08/01/18 16:59 Last Admin: 06/04/18 17:03 Dose: 10 mg Sennosides (Senna Plus 50 Mg-8.6 Mg) 1 tab PO BID [facility] Stop: 08/02/18 16:59 Last Admin: 06/04/18 17:04 Dose: 1 tab Sitagliptin Phosphate (Januvia) 100 mg PO DAILY [facility] Stop: 08/02/18 08:59 Last Admin: 06/04/18 08:25 Dose: 100 mg Extremities: Edema (3+) Assessment/Plan - Assessment Assessment: 1. FSGS, biopsy proven w/ recent relapse: PROTEINURIA QUANTIFIED AT 5.4G. INCREASE PREDNISONE TO 60MG DAILY, KVO IVF AND INCREASE LASIX TO 80MG IV BID 2. Nephrotic syndrome: see above, continue lasix/prednisone 3. HTN: continue BP meds at this time, CASSI-I included for antiproteinuric effect 4. ELECTROLYTE ABNORMALITIES, STABLE. GIVE ADDITIONAL K - Plan Plan: SEE ABOVE ILIA MIMS
[2018-06-04] MEDS ORDERED: D5-0.45NS 1,000 ML IV SCH (17:30)
[2018-06-04] MEDS ORDERED: Potassium Chloride 20 mEq ER Tab PO ONE (18:15)
[2018-06-04] MEDS: Insulin Detemir 100 units/mL 10mL Vial SUBQ SCH (21:20)
[2018-06-05 04:21] LABS: HEMATOCRIT 33.8 % (41.0-60); HEMOGLOBIN 11.3 gm/dL (12-16)
[2018-06-05 04:34] LABS: MEAN CELL VOLUME 89.7 fl (81-100); MEAN CORPUSCULAR HEMOGLOBIN 30.1 pg (27.0-31.0); MEAN CORPUSCULAR HGB CONC 33.5 pg (28.0-36.0); MEAN PLATELET VOLUME 8.7 fl; PLATELET COUNT 258 Th/cmm (150-400); RED BLOOD COUNT 3.77 Mil/cmm (3.80-5.20); RED CELL DISTRIBUTION WIDTH 12.8 % (11.5-20.0)
[2018-06-05 04:42] LABS: WHITE BLOOD COUNT 18.3 Th/cmm (4.8-10.8)
--- NOTE | 2018-06-05 04:42 | Progress Notes ---
DATE: IDENTIFICATION: A 67-year-old female. SUBJECTIVE: The patient seen and examined. The patient has telemetry status, more alert and awake. The patient does not want to go to the snf where she came from. The patient currently denies any chest pain, increasing shortness of breath, palpitation, dizziness. PHYSICAL EXAMINATION: VITAL SIGNS: Temperature 98.1, pulse is 52, respiratory rate 18, blood pressure 176/84. HEENT: No facial asymmetry. NECK: Supple. No JVD. HEART: Regular. CHEST: Lung equal in expansion. No expiratory wheezing. ABDOMEN: Soft, no guarding, no rigidity. Bowel sounds present. No palpable mass. EXTREMITIES: +2 pedal edema noted. LABORATORY AND DIAGNOSTIC DATA: . Urine protein remarkable for 5.4 grams of proteinuria. CLINICAL IMPRESSION: 1. Nephrotic range proteinuria with anasarca. 2. Hypoalbuminemia. 3. Leukocytosis. 4. Diabetes mellitus. 5. Electrolyte imbalance, improved. 6. Diabetes mellitus. 7. Degenerative joint disease. 8. Debility. 9. Hypertension. PLAN: Adjust the dose of diabetes medicine along with blood pressure medicine. The patient will be placed on IV diuretics for now along with adequate potassium supplement. The patient will be followed by [facility] and will follow the recommendations. Continue physical therapy and occupational therapy as well. Care plan reviewed and discussed with staff. JOB# [id number]
[2018-06-05 05:52] LABS: BAND NEUTROPHILE 5 % (0-10); LYMPHOCYTE 12 % (20-50); MONOCYTE 3 % (2-10); NEUTROPHILS 80 % (40-80); PLATELET ESTIMATE ADEQUATE (NORMAL)
[2018-06-05 06:02] LABS: BUN - UREA NITROGEN 28 mg/dL (7-25); CALCIUM SERUM 8.3 mg/dL (8.6-10.3); CARBON DIOXIDE 35.1 mEq/L (21.0-31.0); CHLORIDE 94 mEq/L (98-107); GFR AFRICAN-AMERICAN > 60.0 ml/min (>90); GFR NON AFRICAN-AMERICAN 59.1 ml/min; MAGNESIUM 1.5 mg/dL (1.9-2.7); POTASSIUM SERUM 3.1 mEq/L (3.5-5.1); SODIUM SERUM 136 mEq/L (136-145)
[2018-06-05 06:10] LABS: GLUCOSE 46 mg/dL (70-105)
[2018-06-05] MEDS: INSULIN ASPART, RECOMBINANT 100 UNITS/ML SUBQ SCH ×4 (08:24→20:52)
[2018-06-05] MEDS ORDERED: KCL 20mEq/100mL Premix 20 MEQ/100 ML PIGGYBACK IV SCH (08:30)
[2018-06-05] MEDS ORDERED: Mag Sulfate 2gm/50mL Premix 2 GM/50 ML BAG IV ONE (08:30)
[2018-06-05] MEDS: Docusate Sodium/Senna Tab PO SCH ×2 (08:44→16:55)
[2018-06-05] MEDS: Potassium Chloride 20 mEq ER Tab PO SCH ×3 (08:44→20:53)
--- NOTE | 2018-06-05 09:17 | General Progress Note ---
Subjective - Review of Systems Service Date: 06/05/18 Subjective: Comfortable this AM, electrolytes replaced. Started on high dose steroids Objective - Results Result Diagrams: 06/05/18 04:00 06/05/18 04:10 Recent Labs: Laboratory Last Values WBC 18.3 Th/cmm (4.8-10.8) H D 06/05/18 04:00 RBC 3.77 Mil/cmm (3.80-5.20) L 06/05/18 04:00 Hgb 11.3 gm/dL (12-16) L 06/05/18 04:00 Hct 33.8 % (41.0-60) L 06/05/18 04:00 MCV 89.7 fl (81-100) 06/05/18 04:00 MCH 30.1 pg (27.0-31.0) 06/05/18 04:00 MCHC Differential 33.5 pg (28.0-36.0) 06/05/18 04:00 RDW 12.8 % (11.5-20.0) 06/05/18 04:00 Plt Count 258 Th/cmm (150-400) 06/05/18 04:00 MPV 8.7 fl 06/05/18 04:00 Add Manual Diff YES 06/05/18 04:00 Neutrophils % 87.0 % (40.0-80.0) H 06/04/18 04:55 Band Neutrophils % 5 % (0-10) 06/05/18 04:00 Lymphocytes % 8.8 % (20.0-50.0) L 06/04/18 04:55 Monocytes % 3.6 % (2.0-10.0) 06/04/18 04:55 Eosinophils % 0.5 % (0.0-5.0) 06/04/18 04:55 Basophils % 0.1 % (0.0-2.0) 06/04/18 04:55 Neutrophils (Manual) 80 % (40-80) 06/05/18 04:00 Lymphocytes 12 % (20-50) L 06/05/18 04:00 Monocytes 3 % (2-10) 06/05/18 04:00 Eosinophils 0 % (0-5) 06/02/18 07:40 Basophils 0 % (0-3) 06/02/18 07:40 Platelet Estimate ADEQUATE (NORMAL) 06/05/18 04:00 Specimen Source art 06/02/18 15:06 Sample Site lr 06/02/18 15:06 pH 7.53 (7.35-7.45) H 06/02/18 15:06 pCO2 65.0 mmHg (35.0-45.0) H* 06/02/18 15:06 pO2 70.0 mmHg (80.0-100.0) L 06/02/18 15:06 HCO3 45.1 mEq/L (20.0-26.0) H 06/02/18 15:06 Base Excess 25.9 mEq/L (-3.0-3.0) H 06/02/18 15:06 O2 Saturation 95.0 % (92.0-100.0) 06/02/18 15:06 Eren Test pos 06/02/18 15:06 Vent Rate na 06/02/18 15:06 Inspired O2 24 06/02/18 15:06 Tidal Volume na 06/02/18 15:06 PEEP na 06/02/18 15:06 Pressure (ins/psv/peep) na 06/02/18 15:06 Critical Value rninofranco 06/02/18 15:06 Sodium 136 mEq/L (136-145) 06/05/18 04:10 Potassium 3.1 mEq/L (3.5-5.1) L 06/05/18 04:10 Chloride 94 mEq/L (98-107) L 06/05/18 04:10 Carbon Dioxide 35.1 mEq/L (21.0-31.0) H 06/05/18 04:10 Anion Gap 10.0 (7.0-16.0) 06/05/18 04:10 BUN 28 mg/dL (7-25) H 06/05/18 04:10 Creatinine 1.0 mg/dL (0.6-1.2) 06/05/18 04:10 Est GFR ( Amer) > 60.0 ml/min (>90) 06/05/18 04:10 Est GFR (Non-Af Amer) 59.1 ml/min 06/05/18 04:10 BUN/Creatinine Ratio 28.0 06/05/18 04:10 Glucose 46 mg/dL (70-105) L* 06/05/18 04:10 POC Glucose 63 MG/DL (70 - 105) L 06/05/18 07:21 Calcium 8.3 mg/dL (8.6-10.3) L 06/05/18 04:10 Phosphorus 2.3 mg/dL (2.5-5.0) L 06/04/18 04:55 Magnesium 1.5 mg/dL (1.9-2.7) L 06/05/18 04:10 Total Bilirubin 0.4 mg/dL (0.3-1.0) 06/04/18 04:55 AST 24 U/L (13-39) 06/04/18 04:55 ALT 17 U/L (7-52) 06/04/18 04:55 Alkaline Phosphatase 39 U/L (34-104) 06/04/18 04:55 Troponin I 0.03 ng/mL (0.01-0.05) 06/03/18 07:00 B-Natriuretic Peptide 111.0 pg/mL (5.0-100.0) H 06/01/18 17:45 Total Protein 3.5 gm/dL (6.0-8.3) L 06/04/18 04:55 Albumin 1.8 gm/dL (3.7-5.3) L 06/04/18 04:55 Globulin 1.7 gm/dL 06/04/18 04:55 Albumin/Globulin Ratio 1.1 (1.0-1.8) 06/04/18 04:55 Urine Source CLEAN C 06/01/18 17:49 Urine Color YELLOW 06/01/18 17:49 Urine Clarity HAZY (CLEAR) 06/01/18 17:49 Urine pH 8.0 (4.6 - 8.0) 06/01/18 17:49 Ur Specific [place] 1.025 (1.005-1.030) 06/01/18 17:49 Urine Protein >=300 mg/dL (NEGATIVE) 06/01/18 17:49 Urine Glucose (UA) NEGATIVE mg/dL (NEGATIVE) 06/01/18 17:49 Urine Ketones NEGATIVE mg/dL (NEGATIVE) 06/01/18 17:49 Urine Blood SMALL (NEGATIVE) H 06/01/18 17:49 Urine Nitrate NEGATIVE (NEGATIVE) 06/01/18 17:49 Urine Bilirubin NEGATIVE (NEGATIVE) 06/01/18 17:49 Urine Urobilinogen 0.2 E.U./dL (0.2 - 1.0) 06/01/18 17:49 Ur Leukocyte Esterase TRACE (NEGATIVE) H 06/01/18 17:49 Urine RBC NONE SEEN /hpf (0-5) 06/01/18 17:49 Urine WBC 0-2 /hpf (0-5) 06/01/18 17:49 Ur Epithelial Cells FEW /lpf (FEW) 06/01/18 17:49 Urine Bacteria MODERATE /hpf (NONE SEEN) H 06/01/18 17:49 U Random Total Protein 680.0 mg/dL 06/04/18 05:00 Urine Collection Time 24 hours 06/04/18 05:00 Urine Total Volume 800 ml 06/04/18 05:00 Urine Creatinine 69.0 mg/dl (28.0-217.0) 06/02/18 23:30 U Tot Protein 24h, Calc 5440.0 mg/24 hr (0-165) H 06/04/18 05:00 Urine Opiates Screen NEGATIVE (NEGATIVE) 06/01/18 17:49 Urine Methadone Screen NEGATIVE (NEGATIVE) 06/01/18 17:49 Ur Barbiturates Screen NEGATIVE (NEGATIVE) 06/01/18 17:49 Ur Tricyclics Screen NEGATIVE (NEGATIVE) 06/01/18 17:49 Ur Phencyclidine Scrn NEGATIVE (NEGATIVE) 06/01/18 17:49 Amphetamines Screen NEGATIVE (NEGATIVE) 06/01/18 17:49 U Methamphetamines Scrn NEGATIVE (NEGATIVE) 06/01/18 17:49 U Benzodiazepines Scrn NEGATIVE (NEGATIVE) 06/01/18 17:49 U Cocaine Metab Screen NEGATIVE (NEGATIVE) 06/01/18 17:49 U Cannabinoids Screen NEGATIVE (NEGATIVE) 06/01/18 17:49 - Physical Exam Vitals and I&O: Vital Signs Temp 97.6 F 06/05/18 04:00 Pulse 86 06/05/18 08:45 Resp 16 06/05/18 08:00 BP 134/69 06/05/18 08:45 Pulse Ox 98 06/05/18 08:00 Intake & Output 06/04/18 06/05/18 06/05/18 18:59 06:59 18:59 Intake Total 460 500 Balance 460 500 Weight (lbs) 69.626 kg 71.214 kg Intake: Oral 460 500 Other: # Voids 5 3 # Bowel Movements 3 Stool Characteristics Soft Formed Brown Weight Source Bedscale Bedscale Active Medications: Current Medications Acetaminophen (Tylenol Extra Strength) 500 mg PO Q6H PRN PRN Reason: Pain (Mild) Stop: 08/01/18 12:03 Carvedilol (Coreg) 12.5 mg PO BIDWM [facility] Stop: 08/01/18 17:59 Last Admin: 06/05/18 08:45 Dose: 12.5 mg Clonidine HCl (Strycwwb-Tcd-1) 1 patch TD SA [facility] Stop: 08/01/18 00:29 Last Admin: 06/02/18 03:55 Dose: Not Given Dextrose (D50w) 50 ml IVP PRN PRN PRN Reason: Blood Glucose less than 70 Stop: 08/01/18 17:36 Dextrose (Glutose 40%) 18.75 gm PO PRN PRN PRN Reason: Blood Glucose less than 70 Stop: 08/01/18 17:36 Enalapril Maleate (Vasotec) 20 mg PO BID [facility] Stop: 08/01/18 16:59 Last Admin: 06/05/18 08:44 Dose: 20 mg Furosemide (Lasix) 80 mg IVP BID [facility] Stop: 08/04/18 08:59 Last Admin: 06/05/18 08:43 Dose: 80 mg Glucagon (Glucagen) 1 mg IM PRN PRN PRN Reason: Blood Glucose less than 70 Stop: 08/01/18 17:36 Heparin Sodium (Porcine) (Heparin) 5,000 units SUBQ Q12HR [facility] Stop: 08/01/18 08:59 Last Admin: 06/05/18 08:45 Dose: 5,000 units Dextrose/Sodium Chloride (D5-0.45ns) 1,000 mls @ 0 mls/hr IV .Q0M [facility] Stop: 08/03/18 17:29 Magnesium Sulfate (Magnesium Sulfate Premix) 2 gm in 50 mls @ 25 mls/hr IV X1 ONE Stop: 06/05/18 10:29 Last Admin: 06/05/18 08:43 Dose: 25 mls/hr Potassium Chloride (Potassium Chloride) 20 meq in 100 mls @ 50 mls/hr IV Q2H [facility] Stop: 06/05/18 14:29 Last Admin: 06/05/18 08:45 Dose: 50 mls/hr Insulin Aspart (Novolog) 0 units SUBQ ACHS [facility]; Protocol Stop: 08/01/18 07:29 Last Admin: 06/05/18 08:24 Dose: Not Given Insulin Detemir (Levemir Insulin) 12 units SUBQ HS [facility]; Protocol Stop: 08/01/18 20:59 Last Admin: 06/04/18 21:20 Dose: 12 units Miscellaneous (Vte Chemical Prophylaxis Screen/ Admission) 1 ea [facility] PRN PRN PRN Reason: PROTOCOL Stop: 08/01/18 09:10 Morphine Sulfate (Morphine) 2 mg IVP Q6HR PRN PRN Reason: Pain (Severe) Stop: 08/01/18 00:21 Last Admin: 06/02/18 12:37 Dose: 2 mg Potassium Chloride (Klor-Con) 20 meq PO BID [facility] Stop: 08/03/18 16:59 Last Admin: 06/05/18 08:44 Dose: 20 meq Prednisone (Deltasone) 60 mg PO DAILY [facility] Stop: 08/04/18 08:59 Sennosides (Senna Plus 50 Mg-8.6 Mg) 1 tab PO BID [facility] Stop: 08/02/18 16:59 Last Admin: 06/05/18 08:44 Dose: 1 tab Sitagliptin Phosphate (Januvia) 100 mg PO DAILY [facility] Stop: 08/02/18 08:59 Last Admin: 06/05/18 08:44 Dose: 100 mg General: Alert HEENT: Atraumatic Neck: Supple Cardiovascular: Regular rate Extremities: Edema (3+) Assessment/Plan - Assessment Assessment: Nephrotic syndrome 2 FSGS HTN Proteinuria - Plan Plan: 24h urine protein w/ 5g, continue prednisone and IV lasix amount of proteinuria does not meet relapse criteria add albumin today BP control
[2018-06-05] MEDS: Albumin 5% 12.5gm/250mL 12.5 GM/250 ML BTL IV SCH ×2 (10:49→17:01)
[2018-06-05] MEDS ORDERED: Potassium Chloride 40 MEQ, Lidocaine 1% 20mL Vial 25 MG in Sodium Chloride 0.9% 250 ML IV ONE (12:30)
[2018-06-05] MEDS: Insulin Detemir 100 units/mL 10mL Vial SUBQ SCH (20:53)
--- NOTE | 2018-06-05 23:45 | Progress Notes ---
DATE: IDENTIFICATION: A 67-year-old female. SUBJECTIVE: The patient seen and examined. The patient is lying in the bed. The patient is currently telemetry status. The patient is now placed on high dose steroids and IV Lasix. The patient's potassium is being low. PHYSICAL EXAMINATION: VITAL SIGNS: Temperature 99.6, pulse 86, respiratory rate is 18, blood pressure 134/70. HEENT: No facial asymmetry. NECK: Supple, no JVD. HEART: Regular. CHEST AND LUNG: Equal in expansion with expiratory wheezing. ABDOMEN: Soft. No guarding or rigidity. EXTREMITIES: +3 bilateral lower extremity edema noted. CLINICAL IMPRESSION: 1. 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 2. Anasarca secondary to nephrotic syndrome. 3. Hypokalemia. 4. Hypertension. 5. Diabetes mellitus. 6. Hyperlipidemia. PLAN: 1. Correct electrolytes. 2. P.o. steroid. 3. IV Lasix. 4. Diabetes management. 5. General nursing care. 6. Follow lab. 7. Follow consult recommendation. 8. Discharge planning to long-term as per patient and family, request to another long-term. Case management to look into this request. JOB# [id number]
[2018-06-06] MEDS ORDERED: Albumin 5% 12.5gm/250mL 12.5 GM/250 ML BTL IV ONE (00:22)
[2018-06-06] MEDS: Albumin 5% 12.5gm/250mL 12.5 GM/250 ML BTL IV SCH ×3 (01:30→19:37)
[2018-06-06 05:01] LABS: HEMOGLOBIN 8.6 gm/dL (12-16)
[2018-06-06 05:18] LABS: % BASOPHILS 0.1 % (0.0-2.0); % EOSINOPHILS 0.5 % (0.0-5.0); % LYMPHOCYTES 10.3 % (20.0-50.0); % MONOCYTES 4.5 % (2.0-10.0); % NEUTROPHILS 84.6 % (40.0-80.0); EOSINOPHILE ABSOLUTE 0.1 Th/cmm (0.1-0.4); HEMATOCRIT 25.5 % (41.0-60); LYMPHOCYTE ABSOLUTE 1.3 Th/cmm (1.5-3.0); MEAN CELL VOLUME 89.2 fl (81-100); MEAN CORPUSCULAR HGB CONC 33.7 pg (28.0-36.0); MEAN PLATELET VOLUME 8.6 fl; MONOCYTE ABSOLUTE 0.6 Th/cmm (0.3-1.0); NEUTROPHILE ABSOLUTE 10.3 Th/cmm (1.8-8.0); PLATELET COUNT 183 Th/cmm (150-400); RED BLOOD COUNT 2.86 Mil/cmm (3.80-5.20); RED CELL DISTRIBUTION WIDTH 12.5 % (11.5-20.0); WHITE BLOOD COUNT 12.3 Th/cmm (4.8-10.8)
[2018-06-06 05:30] LABS: ALB/GLOB RATIO 1.1 (1.0-1.8); ALBUMIN 2.2 gm/dL (3.7-5.3); ALKALINE PHOSPHATASE 36 U/L (34-104); ANION GAP 8.2 (7.0-16.0); BILIRUBIN,TOTAL 0.4 mg/dL (0.3-1.0); BUN - UREA NITROGEN 26 mg/dL (7-25); CALCIUM SERUM 8.3 mg/dL (8.6-10.3); CARBON DIOXIDE 34.4 mEq/L (21.0-31.0); CHLORIDE 97 mEq/L (98-107); GFR AFRICAN-AMERICAN > 60.0 ml/min (>90); GFR NON AFRICAN-AMERICAN 59.1 ml/min; GLUCOSE 98 mg/dL (70-105); POTASSIUM SERUM 3.6 mEq/L (3.5-5.1); SGOT 23 U/L (13-39); SGPT/ALT 19 U/L (7-52); SODIUM SERUM 136 mEq/L (136-145); TOTAL PROTEIN,SERUM 4.2 gm/dL (6.0-8.3)
[2018-06-06] MEDS: INSULIN ASPART, RECOMBINANT 100 UNITS/ML SUBQ SCH ×3 (06:30→17:20)
[2018-06-06] MEDS: Potassium Chloride 20 mEq ER Tab PO SCH ×2 (08:59→14:49)
[2018-06-06] MEDS: Docusate Sodium/Senna Tab PO SCH ×2 (08:59→17:20)
[2018-06-06] MEDS ORDERED: Morphine Sulfate 2 mg/mL 1mL Syr IVP PRN (10:00)
--- NOTE | 2018-06-06 13:36 | General Progress Note ---
Subjective - Review of Systems Service Date: 06/06/18 Subjective: Patient seen and examined (covering for DR DEWEY) chart reviewed patient stated she feels much better denied any complaints Objective - Results Result Diagrams: 06/06/18 04:25 06/06/18 04:25 Recent Labs: Laboratory Last Values WBC 12.3 Th/cmm (4.8-10.8) H 06/06/18 04:25 RBC 2.86 Mil/cmm (3.80-5.20) L 06/06/18 04:25 Hgb 8.6 gm/dL (12-16) L 06/06/18 04:25 Hct 25.5 % (41.0-60) L 06/06/18 04:25 MCV 89.2 fl (81-100) 06/06/18 04:25 MCH 30.0 pg (27.0-31.0) 06/06/18 04:25 MCHC Differential 33.7 pg (28.0-36.0) 06/06/18 04:25 RDW 12.5 % (11.5-20.0) 06/06/18 04:25 Plt Count 183 Th/cmm (150-400) 06/06/18 04:25 MPV 8.6 fl 06/06/18 04:25 Add Manual Diff YES 06/05/18 04:00 Neutrophils % 84.6 % (40.0-80.0) H 06/06/18 04:25 Band Neutrophils % 5 % (0-10) 06/05/18 04:00 Lymphocytes % 10.3 % (20.0-50.0) L 06/06/18 04:25 Monocytes % 4.5 % (2.0-10.0) 06/06/18 04:25 Eosinophils % 0.5 % (0.0-5.0) 06/06/18 04:25 Basophils % 0.1 % (0.0-2.0) 06/06/18 04:25 Neutrophils (Manual) 80 % (40-80) 06/05/18 04:00 Lymphocytes 12 % (20-50) L 06/05/18 04:00 Monocytes 3 % (2-10) 06/05/18 04:00 Eosinophils 0 % (0-5) 06/02/18 07:40 Basophils 0 % (0-3) 06/02/18 07:40 Platelet Estimate ADEQUATE (NORMAL) 06/05/18 04:00 Specimen Source art 06/02/18 15:06 Sample Site lr 06/02/18 15:06 pH 7.53 (7.35-7.45) H 06/02/18 15:06 pCO2 65.0 mmHg (35.0-45.0) H* 06/02/18 15:06 pO2 70.0 mmHg (80.0-100.0) L 06/02/18 15:06 HCO3 45.1 mEq/L (20.0-26.0) H 06/02/18 15:06 Base Excess 25.9 mEq/L (-3.0-3.0) H 06/02/18 15:06 O2 Saturation 95.0 % (92.0-100.0) 06/02/18 15:06 Eren Test pos 06/02/18 15:06 Vent Rate na 06/02/18 15:06 Inspired O2 24 06/02/18 15:06 Tidal Volume na 06/02/18 15:06 PEEP na 06/02/18 15:06 Pressure (ins/psv/peep) na 06/02/18 15:06 Critical Value [email or web address] 06/02/18 15:06 Sodium 136 mEq/L (136-145) 06/06/18 04:25 Potassium 3.6 mEq/L (3.5-5.1) 06/06/18 04:25 Chloride 97 mEq/L (98-107) L 06/06/18 04:25 Carbon Dioxide 34.4 mEq/L (21.0-31.0) H 06/06/18 04:25 Anion Gap 8.2 (7.0-16.0) 06/06/18 04:25 BUN 26 mg/dL (7-25) H 06/06/18 04:25 Creatinine 1.0 mg/dL (0.6-1.2) 06/06/18 04:25 Est GFR ( Amer) > 60.0 ml/min (>90) 06/06/18 04:25 Est GFR (Non-Af Amer) 59.1 ml/min 06/06/18 04:25 BUN/Creatinine Ratio 26.0 06/06/18 04:25 Glucose 98 mg/dL (70-105) 06/06/18 04:25 POC Glucose 122 MG/DL (70 - 105) H 06/06/18 11:34 Calcium 8.3 mg/dL (8.6-10.3) L 06/06/18 04:25 Phosphorus 2.3 mg/dL (2.5-5.0) L 06/04/18 04:55 Magnesium 1.7 mg/dL (1.9-2.7) L 06/06/18 04:25 Total Bilirubin 0.4 mg/dL (0.3-1.0) 06/06/18 04:25 AST 23 U/L (13-39) 06/06/18 04:25 ALT 19 U/L (7-52) 06/06/18 04:25 Alkaline Phosphatase 36 U/L (34-104) 06/06/18 04:25 Troponin I 0.03 ng/mL (0.01-0.05) 06/03/18 07:00 B-Natriuretic Peptide 111.0 pg/mL (5.0-100.0) H 06/01/18 17:45 Total Protein 4.2 gm/dL (6.0-8.3) L 06/06/18 04:25 Albumin 2.2 gm/dL (3.7-5.3) L 06/06/18 04:25 Globulin 2.0 gm/dL 06/06/18 04:25 Albumin/Globulin Ratio 1.1 (1.0-1.8) 06/06/18 04:25 Urine Source CLEAN C 06/01/18 17:49 Urine Color YELLOW 06/01/18 17:49 Urine Clarity HAZY (CLEAR) 06/01/18 17:49 Urine pH 8.0 (4.6 - 8.0) 06/01/18 17:49 Ur Specific [place] 1.025 (1.005-1.030) 06/01/18 17:49 Urine Protein >=300 mg/dL (NEGATIVE) 06/01/18 17:49 Urine Glucose (UA) NEGATIVE mg/dL (NEGATIVE) 06/01/18 17:49 Urine Ketones NEGATIVE mg/dL (NEGATIVE) 06/01/18 17:49 Urine Blood SMALL (NEGATIVE) H 06/01/18 17:49 Urine Nitrate NEGATIVE (NEGATIVE) 06/01/18 17:49 Urine Bilirubin NEGATIVE (NEGATIVE) 06/01/18 17:49 Urine Urobilinogen 0.2 E.U./dL (0.2 - 1.0) 06/01/18 17:49 Ur Leukocyte Esterase TRACE (NEGATIVE) H 06/01/18 17:49 Urine RBC NONE SEEN /hpf (0-5) 06/01/18 17:49 Urine WBC 0-2 /hpf (0-5) 06/01/18 17:49 Ur Epithelial Cells FEW /lpf (FEW) 06/01/18 17:49 Urine Bacteria MODERATE /hpf (NONE SEEN) H 06/01/18 17:49 U Random Total Protein 680.0 mg/dL 06/04/18 05:00 Urine Collection Time 24 hours 06/04/18 05:00 Urine Total Volume 800 ml 06/04/18 05:00 Urine Creatinine 69.0 mg/dl (28.0-217.0) 06/02/18 23:30 U Tot Protein 24h, Calc 5440.0 mg/24 hr (0-165) H 06/04/18 05:00 Urine Opiates Screen NEGATIVE (NEGATIVE) 06/01/18 17:49 Urine Methadone Screen NEGATIVE (NEGATIVE) 06/01/18 17:49 Ur Barbiturates Screen NEGATIVE (NEGATIVE) 06/01/18 17:49 Ur Tricyclics Screen NEGATIVE (NEGATIVE) 06/01/18 17:49 Ur Phencyclidine Scrn NEGATIVE (NEGATIVE) 06/01/18 17:49 Amphetamines Screen NEGATIVE (NEGATIVE) 06/01/18 17:49 U Methamphetamines Scrn NEGATIVE (NEGATIVE) 06/01/18 17:49 U Benzodiazepines Scrn NEGATIVE (NEGATIVE) 06/01/18 17:49 U Cocaine Metab Screen NEGATIVE (NEGATIVE) 06/01/18 17:49 U Cannabinoids Screen NEGATIVE (NEGATIVE) 06/01/18 17:49 - Physical Exam Vitals and I&O: Vital Signs Temp 98.8 F 06/06/18 08:00 Pulse 77 06/06/18 09:00 Resp 12 06/06/18 08:00 BP 133/67 06/06/18 09:00 Pulse Ox 98 06/06/18 08:00 Intake & Output 06/05/18 06/06/18 06/06/18 18:59 06:59 18:59 Intake Total 1172.5 1530 Balance 1172.5 1530 Weight (lbs) 71.214 kg 69.485 kg Intake: Intake, IV Amount 672.5 500 Albumin 5% 12.5gm/250mL 250 500 12.5 gm In 250 ml @ 62.5 mls/hr IV Q8H [facility] Rx#: [id number] Oral 500 1030 Other: # Voids 3 5 # Bowel Movements 3 1 Stool Characteristics Soft Brown Weight Source Bedscale Bedscale Active Medications: Current Medications Acetaminophen (Tylenol Extra Strength) 500 mg PO Q6H PRN PRN Reason: Pain (Mild) Stop: 08/01/18 12:03 Carvedilol (Coreg) 12.5 mg PO BIDWM [facility] Stop: 08/01/18 17:59 Last Admin: 06/06/18 08:59 Dose: 12.5 mg Clonidine HCl ([id number]) 1 patch TD SA [facility] Stop: 08/01/18 00:29 Last Admin: 06/02/18 03:55 Dose: Not Given Dextrose (D50w) 50 ml IVP PRN PRN PRN Reason: Blood Glucose less than 70 Stop: 08/01/18 17:36 Dextrose (Glutose 40%) 18.75 gm PO PRN PRN PRN Reason: Blood Glucose less than 70 Stop: 08/01/18 17:36 Enalapril Maleate (Vasotec) 20 mg PO BID [facility] Stop: 08/01/18 16:59 Last Admin: 06/06/18 09:00 Dose: 20 mg Furosemide (Lasix) 80 mg IVP BID [facility] Stop: 08/04/18 08:59 Last Admin: 06/06/18 09:00 Dose: 80 mg Glucagon (Glucagen) 1 mg IM PRN PRN PRN Reason: Blood Glucose less than 70 Stop: 08/01/18 17:36 Heparin Sodium (Porcine) (Heparin) 5,000 units SUBQ Q12HR [facility] Stop: 08/01/18 08:59 Last Admin: 06/06/18 09:00 Dose: 5,000 units Dextrose/Sodium Chloride (D5-0.45ns) 1,000 mls @ 0 mls/hr IV .Q0M [facility] Stop: 08/03/18 17:29 Albumin Human (Albutein 5%) 12.5 gm in 250 mls @ 62.5 mls/hr IV Q8H [facility] Stop: 06/07/18 09:59 Last Admin: 06/06/18 11:24 Dose: 62.5 mls/hr Insulin Aspart (Novolog) 0 units SUBQ ACHS [facility]; Protocol Stop: 08/01/18 07:29 Last Admin: 06/06/18 06:30 Dose: Not Given Insulin Detemir (Levemir Insulin) 12 units SUBQ HS [facility]; Protocol Stop: 08/01/18 20:59 Last Admin: 06/05/18 20:53 Dose: 12 units Miscellaneous (Vte Chemical Prophylaxis Screen/ Admission) 1 ea [facility] PRN PRN PRN Reason: PROTOCOL Stop: 08/01/18 09:10 Morphine Sulfate (Morphine) 2 mg IVP Q6HR PRN PRN Reason: Pain (Severe) Stop: 08/01/18 00:21 Potassium Chloride (Klor-Con) 20 meq PO TID [facility] Stop: 08/04/18 13:59 Last Admin: 06/06/18 08:59 Dose: 20 meq Prednisone (Deltasone) 60 mg PO DAILY [facility] Stop: 08/04/18 08:59 Last Admin: 06/06/18 09:07 Dose: 60 mg Sennosides (Senna Plus 50 Mg-8.6 Mg) 1 tab PO BID [facility] Stop: 08/02/18 16:59 Last Admin: 06/06/18 08:59 Dose: 1 tab Sitagliptin Phosphate (Januvia) 100 mg PO DAILY [facility] Stop: 08/02/18 08:59 Last Admin: 06/06/18 08:59 Dose: 100 mg General: Alert Cardiovascular: Regular rate Lungs: Clear to auscultation Extremities: Edema (3+), Other (bilateral edema noted) Assessment/Plan - Assessment Assessment: Nephrotic syndrome 2 FSGS HTN Proteinuria DM II - Plan Plan: Patient doing better DC plan back to [facility] DC plan discussed with patient's nurse and CM Continue current treatment plan upon discharge
--- NOTE | 2018-06-27 11:13 | Discharge Summary ---
DATE OF DISCHARGE: 06/06/2018 PRINCIPAL DIAGNOSES: 1. Life threatening hypokalemia secondary to diuretics. 2. 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 3. Anasarca secondary to nephrotic syndrome. 4. Hypertension. 5. Diabetes. 6. Hyperlipidemia. 7. Debility. 8. Decline in self-care and mobility. BRIEF STATEMENT FOR THE REASON FOR ADMISSION: A 67-year-old female presented to Emergency Room from correction after the patient called 911 because the patient was not feeling well. When the patient was arrived in the Emergency Room noted to have potassium of 2.3, magnesium 1.3, elevated CO2 51.5. The patient was admitted to ICU. Please refer to my H and P for further information. HOSPITAL COURSE: The patient was admitted to ICU, severe electrolyte imbalances were corrected. The patient was noted to have significant anasarca secondary to nephrotic syndrome. Nephrology consultation requested, CASSI inhibitor was also added, calcium check and patient's diuretics dose were adjusted, other medications were reconciled as well. The patient's family were informed whether the patient's condition, diagnosis and treatment plan. The patient was seen by Dr. Mitesh Hernandez and the patient was placed on IV steroid. Diabetes was also managed. Upon my vacation, the patient was followed by Dr. Ferguson who discharged this patient's to correction with p.o. prednisone with other medication. The patient will be followed by her hot tamale man. At the time of discharge, all of her medications were reconciled. JOB# [id number]
== END 2018-06-06 19:29 | DRG 699 ==
LOC: ER 16:50 → ICU 22:13 → MSI 06-06 14:41
PROVIDERS: ADMIT Internal Medicine; ATTEND Internal Medicine
DX: N04.1 Nephrotic syndrome with focal and segmental glomerular lesions (principal); J81.1 Chronic pulmonary edema; N39.0 Urinary tract infection, site not specified; E87.3 Alkalosis; T50.1X5A Adverse effect of loop [high-ceiling] diuretics, initial encounter; E87.6 Hypokalemia; E86.0 Dehydration; I10 Essential (primary) hypertension; E78.5 Hyperlipidemia, unspecified; T50.2X5A Adverse effect of carbonic-anhydrase inhibitors, benzothiadiazides and other diuretics, initial encounter; K21.9 Gastro-esophageal reflux disease without esophagitis; F32.9 Major depressive disorder, single episode, unspecified; F03.90 Unspecified dementia, unspecified severity, without behavioral disturbance, psychotic disturbance, mood disturbance, and anxiety; R09.02 Hypoxemia; D64.9 Anemia, unspecified; E87.8 Other disorders of electrolyte and fluid balance, not elsewhere classified; R80.9 Proteinuria, unspecified; E11.9 Type 2 diabetes mellitus without complications; D72.829 Elevated white blood cell count, unspecified; N26.9 Renal sclerosis, unspecified; M19.90 Unspecified osteoarthritis, unspecified site; Z83.3 Family history of diabetes mellitus; Z87.11 Personal history of peptic ulcer disease; Z88.1 Allergy status to other antibiotic agents; Z82.49 Family history of ischemic heart disease and other diseases of the circulatory system; Y92.89 Other specified places as the place of occurrence of the external cause; Z23 Encounter for immunization
CPT/HCPCS: 36415-UA; 71045-TC; 80048-TC; 80053-TC; 80307; 81001-TC; 82570-TC; 82803-TC; 82948-90; 83735-TC; 83880-TC; 84100-TC; 84156-TC; 84484-TC; 85007-TC; 85025-TC; 87086-90; 90784; 90799; 93005; 94760; 96375; 96376; 97530; J1644; J1815; J1940; J2001; J3475; J3480; J7040; J7512; J7799; P9045; X3904; Z7610